=== PATIENT | female | born 1985 | race Caucasian/White ===

== ENCOUNTER 2023-08-25 16:45 | Emergency (ER) | payer MEDICAID ==
[~2023-08-25] VITALS: Ht 160 cm; Wt 100.0 kg
[2023-08-25 17:11] VITALS: O2SAT 99
[2023-08-25 19:12] VITALS: BP 144/77; PULSE 90; RESP 18; TEMP 98.8
== END 2023-08-25 19:15 | disposition home or self-care (01) ==
LOC: ER 16:45
DX: Z00.00 Encounter for general adult medical examination without abnormal findings (principal)
CPT/HCPCS: 99281